=== PATIENT | female | born 1950 | race Caucasian/White ===

== ENCOUNTER 2022-08-27 14:51 | Oncology outpatient (recurring) (ONCR) | payer MEDICARE, OTHER, SELFPAY | END 2022-09-08 23:59 | disposition home or self-care (01) | PROVIDERS: PCP Family Medicine; Visit Provider Internal Medicine Hematology & Oncology | DX: C50.812 Malignant neoplasm of overlapping sites of left female breast (principal); Z17.0 Estrogen receptor positive status [ER+]; Z79.818 Long term (current) use of other agents affecting estrogen receptors and estrogen levels; F17.210 Nicotine dependence, cigarettes, uncomplicated; Z79.899 Other long term (current) drug therapy | CPT/HCPCS: 99204 ==

== ENCOUNTER 2022-09-13 07:44 | Outpatient (CLI) | payer MEDICARE, OTHER, SELFPAY ==
--- NOTE | 2022-09-13 07:53 | US_ITS ---
WS: [id number] Ultrasound of the left axilla, 09/13/2022 Clinical Data: palpable lymph node in left axilla, hx of breast ca Comparison: None. Findings: There are numerous lymph nodes in the left axilla. The 2 largest nodes measure 0.49 x 0.63 x 0.8 cm a nd 0.34 x 1.06 x 1.22 cm. No cysts or masses are seen. US/US soft tissue/extremity 53821 Impression: Numerous left axillary lymph nodes.
== END 2022-09-13 07:45 | disposition home or self-care (01) ==
PROVIDERS: PCP Family Medicine; Visit Provider Internal Medicine Hematology & Oncology
DX: R59.0 Localized enlarged lymph nodes (principal); Z85.3 Personal history of malignant neoplasm of breast
CPT/HCPCS: 76882

== ENCOUNTER 2022-10-16 13:43 | Oncology outpatient (recurring) (ONCR) | payer MEDICARE, OTHER, SELFPAY ==
--- NOTE | 2022-10-16 14:37 | N.ONRAD NP_ITS ---
Radiation Oncology Consultation Patient Name: Marline Yanez Date of : 1950 Date of Service: 10/16/2022 Attending Physician: Sanjay Kelly M.D. Marline Yanze was seen in consultation this morning at the request of Sandra Alex M.D. for evaluation regarding adjuvant breast radiotherapy in the management of an early stage breast cancer. A palpable left breast mass was identified by her primary care physician in July of 2022. Physical examination confirmed a 3 cm x 4 cm mass without axillary lymphadenopathy. An excisional biopsy was performed by Girish Katz M.D. on August 14, 2022. 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 The tumor focally extended to the inked margin. The breast cancer prognostic profile reported estrogen receptor positivity (98%) and progesterone receptor positivity (80%). HER2 was negative by IHC (1+). The Oncotype DX Breast Recurrence Score was 16. I reviewed with the patient The [place] [employer] on [employer] Staging for breast cancer and specifically the patient's pathological stage IA (T2N0) specific to her diagnosis. I also discussed the classic study by the NSABP comparing mastectomy, lumpectomy, and lumpectomy with radiotherapy and the Early Breast Cancer Trialist Collaborative Group meta-analysis. She is aware that the addition of radiotherapy to lumpectomy provides improvement in local control and overall survival. I will refer her for re-excision in consideration of the positive surgical margin. The patient has verbalized understanding would like to proceed as recommended. The medical treatment plan was discussed with Eliecer Alex M.D. Signed by: Dr. Sanjay Kelly 10/16/2022 2:36:32 PM
== END 2022-11-06 23:59 | disposition home or self-care (01) ==
PROVIDERS: PCP Family Medicine; Visit Provider Internal Medicine Hematology & Oncology
DX: C50.912 Malignant neoplasm of unspecified site of left female breast (principal); Z17.0 Estrogen receptor positive status [ER+]
CPT/HCPCS: 99204

== ENCOUNTER → 2022-10-18 14:24 | Outpatient (BNVA) | payer MEDICARE, OTHER, SELFPAY | PROVIDERS: PCP Family Medicine; Visit Provider Surgery | DX: C50.912 Malignant neoplasm of unspecified site of left female breast (principal) | CPT/HCPCS: 99203 ==

== ENCOUNTER → 2022-11-09 10:11 | Day surgery (SDC) | payer MEDICARE, OTHER, SELFPAY ==
[2022-11-08 10:02] VITALS: BMI 19.1
[2022-11-09] VITALS (8 sets, daily range): BP systolic 134–179; BP diastolic 53–84; PULSE 74–102; RESP 15–19; TEMP 36.2–36.5; O2SAT 92–100
[2022-11-09] MEDS: sodium chloride 0.9% 1,000 ML 30 ML IV (11:15)
--- NOTE | 2022-11-09 12:00 | PC.NURSE ---
Patient was injected with 0.88 mCi Tc99m Tilmanocept Lymphoseek in the 12:00 position of the left breast without complications at 11:40 by JAMES Almeida.
--- NOTE | 2022-11-09 12:14 | ANES.PREANE2 ---
Pre-Anesthetic Assessment Height/Weight: Height 1.65 m Weight 52.163 kg Temp Pulse Resp BP Pulse Ox O2 Del Method 97.7 F 74 18 142/53 100 11/09/22 10:40 11/09/22 10:40 11/09/22 10:40 11/09/22 10:40 11/09/22 10:40 11/09/22 10:40 Preop Diagnosis: left breast cancer Operation Date: 11/09/22 13:00 Proposed Procedures p 41697 bilateral mastectomy C50.912 92785(Bilateral) - Jatin Fuller DO s sent[place] [address] sentinel node bx injection(Left) - Jatin Fuller DO Familial anesthetic complications: none Was Beta Daren taken within 24 hours: N/A Was Clonidine taken within 24 hours: N/A Last intake: Intake Last Liquid Date 11/08/22 Last Liquid Time 22:00 Last Solid Date 11/08/22 Last Solid Time 19:00 Social No alcohol and No tobacco Exam alert, oriented x 3, clear to auscultation bilaterally and regular rate & rhythm Airway Submandibular: within normal limits Cervical ROM: within normal limits Mallampati: Class II Dentition: loose, caps and partials History/ROS No significant history except as noted Neuropsych Anxiety and Depression Anesthetic Plan ASA status: 2 Anesthesia: General Medications/Allergies Home Medications Medication Instructions Recorded Confirmed Last Taken Type THC/CBD See Rx Instructions PO .COMPLEX 08/27/22 11/08/22 11/08/22 History duloxetine 60 mg capsule,delayed 60 mg PO DAILY 08/27/22 11/08/22 11/08/22 History release (Cymbalta) ibuprofen 200 mg tablet 200 mg PO Q6H PRN Pain 08/27/22 11/08/22 11/07/22 History anastrozole 1 mg tablet (Arimidex) 1 mg PO DAILY #30 tabs 10/11/22 11/08/22 11/07/22 Rx Allergies Allergy/AdvReac Type Severity Reaction Status Date / Time cephalexin [From Keflex] Allergy Unknown Verified 10/18/22 14:33 Sulfa (Sulfonamide Allergy ALGY-Redness Verified 10/18/22 14:33 Antibiotics) of Skin Current Medications Generic Name Dose Route Start Last Admin Trade Name Freq PRN Reason Stop Dose Admin Sodium Chloride 1,000 mls @ 30 mls/hr 11/09/22 10:30 11/09/22 11:15 Sodium Chloride 0.9% IV 11/10/22 10:29 30 mls/hr .Q24H MYNOR Administration PFSH Anesthesia Medical History Breast cancer, left Surgical History History of appendectomy History of cataract extraction bilateral History of hysterectomy History of lumpectomy of left breast x2 History of tonsillectomy Family History Other Cancer Dementia Lung disease Denies family history of Diabetes CAD (coronary artery disease) Clotting disorder Hyperlipidemia Psychiatric illness Chronic kidney disease (CKD) Suicide Anesthesia complication Bleeding disorder Hypertension Stroke Social History Smoking and tobacco status: current every day smoker cigarettes Packs smoked per day: 1 Years cigarettes smoked: 50 Data Anesthesia Cardiac Studies: No Data to Display
--- NOTE | 2022-11-09 12:36 | W.PM.OPSUD ---
Surgery/Procedure H&P Update DATE OF PROCEDURE: November 09, 2022 DATE H&P PERFORMED: 10/18/22 H&P UPDATE INFORMATION: I have reviewed H&P completed within last 30 days, I have examined patient prior to procedure and Changes to prior documentation as noted here (Patient has elected for bilateral simple mastectomies with left sentinel lymph node biopsy. The risks are the same as before) PREOP DIAGNOSIS: left breast cancer PLANNED PROCEDURE: Operation Date: 11/09/22 13:00 Proposed Procedures p 16805 bilateral mastectomy C50.912 01741(Bilateral) - DO alvarado Gibson sentinel [place] [address] sentinel node bx injection(Left) - Jatin Fuller DO
[2022-11-09] MEDS: vancomycin 1,000 MG in sodium chloride 0.9% 250 ML 250 MG IV (13:00)
[2022-11-09] MEDS: isosulfan blue 10 mg/mL SDV 5mL SUBCUT (13:37)
[2022-11-09] MEDS: lidocaine-epi 2% 20 mL INJ INJECTION (13:37)
--- NOTE | 2022-11-09 15:18 | PM.OP ---
Operative Report Date of procedure: November 09, 2022 Pre-op diagnosis: Preop Diagnosis left breast cancer Post-op diagnosis: same Procedure done: Left simple mastectomy Left axillary sentinel lymph node biopsy Right simple mastectomy Implants: To 19 [place] Cirilo drains Specimens removed/disposition: Left axillary sentinel lymph nodes Left breast, stitch palacio medial Right breast, stitch palacio medial Surgeon: Dr. Jatin Fuller, DO Anesthesia: General Estimated blood loss (mL): 50 Complications: None apparent Brief History: This is a very pleasant 72-year-old female who presented to my office with known left breast cancer that had previously underwent a lumpectomy by another surgeon. Margins were positive. Ultimately she desired left mastectomy with sentinel lymph node biopsy and prophylactic right mastectomy. The risk and benefits of procedures were explained and documented. Procedure: The patient was wheeled into the operative room and placed on the OR table in the supine position. The bilateral breast and axillas were inspected prepped and draped in the usual sterile fashion. A timeout was performed. All present were in agreement. Lymphazurin blue was injected subareolarly on the left. This area was massaged for 5 minutes. A horizontal excision was made from medial to the latissimus dorsi to lateral to the sternum, encompassing the nipple. The lateral dissection was performed first. I dissected down to the latissimus dorsi and superior to the clavipectoral fascia using Bovie cautery. Using Bovie cautery and Anastacio counter I looked for a sentinel node. The [place] counter at the mass was registering at 5372 and 3 sentinel lymph nodes were identified measuring between 577 and 75. All 3 lymph nodes were blue and relatively small. The lymph nodes were removed with Bovie cautery, clipping any small arteries, and sent to pathology for permanence. Attention was then brought back to the mastectomy. The horizontal ellipse excision was made with a 15 blade scalpel and carried down to the fatty tissue with Bovie cautery. I started with the superior flap and removed all the breast tissue using Bovie cautery. This was carried up to the clavipectoral fascia and down to the pectoralis major. All breast tissue was removed laterally to the latissimus dorsi and medially to the sternum. I then went to the posterior flap. All breast tissue was removed with Bovie cautery down to the inframammary fold. I did not visualize a mass as the breast was removed en bloc. I carried the dissection down to the pectoralis major and removed all the breast tissue in its entirety. Hemostasis was achieved with electrocautery and medium sized clips. The breast was removed and a stitch was placed on the medial margin to floresita the specimen. The specimen was passed off. The surgical field was irrigated and suctioned. There was no signs of bleeding. A 19 [place] Cirilo drain was then placed underneath the skin. Dermis was then approximated with 3-0 Vicryl in interrupted fashion. Skin was then closed with 4-0 Vicryl in a subcuticular running fashion. Next the same exact procedure was performed on the right breast without performing a sentinel lymph node biopsy. The bilateral mastectomies were performed and the skin came together nicely. Dermabond was placed over both incisions. Patient tolerated the procedure well and was wheeled in the postoperative anesthesia care unit in good condition.
[2022-11-09] MEDS: fentaNYL 50 mcg/mL INJ 2mL IVP (16:14)
[2022-11-09] MEDS: HYDROmorphone 1 mg/mL INJ 1 mL 0.5 MG IVP (16:19)
--- NOTE | 2022-11-09 16:19 | ANE.PACU2 ---
Inpatient post-anesthesia follow up: Airway intact: Yes Vital signs: Temperature 97.2 F Pulse Rate 96 Respiratory Rate 17 Blood Pressure 142/72 Pulse Oximetry 93 Oxygen Delivery Me thod Room Air Oxygen Flow Rate 6 Fraction of Inspir ed Oxygen Hydration adequate: Yes Nausea and vomiting: No Pain level: 3 Mental status: Baseline
[2022-11-09] MEDS: oxyCODONE-APAP 10-325 mg Tablet 1 TAB PO (16:50)
== END | disposition home or self-care (01) ==
PROVIDERS: PCP Family Medicine; Visit Provider Surgery
PROC: (CPT 19303; principal; 2022-11-09 13:00)
PROC: (CPT 19303; 2022-11-09 13:00)
DX: C50.912 Malignant neoplasm of unspecified site of left female breast (principal); F17.210 Nicotine dependence, cigarettes, uncomplicated; Z80.3 Family history of malignant neoplasm of breast
CPT/HCPCS: 19303; 38500; 38792; 88307; 88309; 88342; A9520; J1100; J1170; J2370; J2405; J2704; J3010; J3370; J7030; J7050; Q9968

== ENCOUNTER → 2022-11-20 08:59 | Outpatient (BNVA) | payer MEDICARE, OTHER, SELFPAY | PROVIDERS: PCP Family Medicine; Visit Provider Surgery | DX: Z98.890 Other specified postprocedural states (principal); Z90.13 Acquired absence of bilateral breasts and nipples | CPT/HCPCS: 99024 ==

== ENCOUNTER 2023-01-18 07:58 | Oncology outpatient (recurring) (ONCR) | payer MEDICARE, OTHER, SELFPAY ==
[2023-01-18 08:11] LABS: Basophils # 0.1 10^3/uL (0.0-0.1); Basophils % 0.8 %; Eosinophils # 0.2 10^3/uL (0.0-0.8); Eosinophils % 2.4 %; Hematocrit 39.6 % (37.0-47.0); Hemoglobin 12.8 g/dL (11.5-15.3); Lymphocytes # 2.3 10^3/uL (0.8-4.8); Lymphocytes % 36.7 %; Mean Corpuscular HGB Conc 32.3 g/dL (30.0-36.0); Mean Corpuscular Hemoglobin 29.4 pg (28.0-34.0); Mean Corpuscular Volume 90.8 fl (81-99); Mean Platelet Volume 8.8 fL (7.4-10.4); Monocytes # 0.5 10^3/uL (0.2-0.9); Monocytes % 8.1 %; Neutrophils # 3.19 10^3/uL (1.8-7.7); Neutrophils % 51.8 %; Nucleated Red Blood Cells % 0 %; Platelet Count 343 10^3/cmm (130-400); Red Blood Count 4.36 10^6/uL (4.1-5.3); Red Cell Distribution Width 14.2 % (12.1-15.1); White Blood Count 6.2 10^3/uL (4.0-10.0)
[2023-01-18 08:27] LABS: Alanine Aminotransferase 26 U/L (0-33); Albumin Level 3.9 g/dL (3.5-5.2); Alkaline Phosphatase 86 U/L (35-105); Anion Gap 13.2 (5-19); Aspartate Amino Transferase 32 U/L (0-32); Blood Urea Nitrogen 5 mg/dL (8-23); Calcium 9.2 mg/dL (8.5-10.5); Carbon Dioxide 26 mmol/L (22-29); Chloride 99 mmol/L (98-107); Globulin 3.2 g/dL (1.3-4.6); Glucose 102 mg/dL (65-115); Osmolality Calculated 275 mOsm/kg (285-295); Potassium 4.2 mmol/L (3.5-5.1); Sodium 134 mmol/L (136-145); Total Bilirubin 0.2 mg/dL (0.15-1.2); Total Protein 7.1 g/dL (6.6-8.7)
== END 2023-02-06 23:59 | disposition home or self-care (01) ==
PROVIDERS: PCP Family Medicine; Visit Provider Internal Medicine Hematology & Oncology
DX: C50.812 Malignant neoplasm of overlapping sites of left female breast (principal); Z17.0 Estrogen receptor positive status [ER+]; Z90.13 Acquired absence of bilateral breasts and nipples; C77.3 Secondary and unspecified malignant neoplasm of axilla and upper limb lymph nodes; Z79.811 Long term (current) use of aromatase inhibitors; Z79.899 Other long term (current) drug therapy; C50.912 Malignant neoplasm of unspecified site of left female breast
CPT/HCPCS: 36415; 80053; 85025; 99214